=== PATIENT | female | born 1995 | race Caucasian/White ===

== ENCOUNTER → 2024-04-22 08:45 | Outpatient (REF) | payer BC, SELFPAY | LOC: PNTC 08:45 | PROVIDERS: ATTENDING PHYSICIAN Obstetrics & Gynecology | DX: O36.0191 Maternal care for anti-D [Rh] antibodies, unspecified trimester, fetus 1 (principal) | CPT/HCPCS: 86850; 86900; 86901; J2790 ==

== ENCOUNTER 2024-07-13 04:48 | Inpatient (IN) | payer BC, SELFPAY ==
[2024-07-13 05:01] VITALS: BP 119/84; BMI 33.7
[2024-07-13] MEDS: LR 1000 IV ×3 (05:15→22:43)
[2024-07-13 06:06] LABS: % Basophils 0.3 % (0-2); % Eosinophils 0.1 % (0-6); % Immature Granulocytes 0.6 % (0-0.5); % Lymphocytes 13.6 % (20.5-51.1); % Monocytes 3.6 % (1.7-9.3); % Neutrophils 81.8 % (42.2-75.2); Absolute Immature Granulocytes 0.1 10^3/uL (0-0.05); Absolute Lymphocytes 1.7 10^3/uL (1.2-3.4); Absolute Monocytes 0.5 10^3/uL (0.1-0.6); Absolute Neutrophils 10.4 10^3/uL (1.4-6.5); Hematocrit 35.6 % (37.0-47.0); Hemoglobin 12.5 g/dL (12.0-16.0); Mean Corp Hgb Conc. 35.1 g/dL (33.0-37.0); Mean Corpuscular Hgb 30.1 pg (27.0-31.0); Mean Corpuscular Volume 85.8 fL (81.0-99.0); Nucleated Red Blood Cells % 0 %; Platelet Count 160 10^3/uL (130-400); Red Blood Cell Count 4.15 10^6/uL (4.20-5.40); Red Cell Dist. Width 14.1 % (11.5-14.5); White Blood Cell Count 12.7 10^3/uL (4.8-10.8)
[2024-07-13] MEDS: ZOFRAN 4 MG IV (10:50)
[2024-07-13] MEDS: PEPCID 20 MG IV (10:50)
[2024-07-13] MEDS: MORPHINE SULFATE 2 MG IV ×2 (10:50→11:53)
[2024-07-13] MEDS: PITOCIN 30 UNITS/NSS 500 ML IV (11:00)
[2024-07-13] MEDS: FENTANYL/BUPIVACAINE 100 EPIDURAL ×2 (12:59→20:20)
[2024-07-13] MEDS: SUBLIMAZE 100 MCG EPIDURAL (12:59)
[2024-07-14] MEDS: FENTANYL/BUPIVACAINE 100 EPIDURAL (03:46)
[2024-07-14] MEDS: PITOCIN 30 UNITS/NSS 500 ML IV (11:20)
[2024-07-14] MEDS: TYLENOL 650 MG PO ×3 (13:03→23:07)
[2024-07-14] MEDS: MOTRIN 600 MG PO ×2 (16:44→23:07)
[2024-07-15] MEDS: MOTRIN 600 MG PO ×3 (05:04→18:46)
[2024-07-15] MEDS: TYLENOL 650 MG PO ×3 (05:04→18:46)
[2024-07-15 06:20] LABS: Hematocrit 29.7 % (37.0-47.0); Hemoglobin 10.1 g/dL (12.0-16.0)
[2024-07-15] MEDS: SENOKOT-S 1 TABLET PO (08:09)
[2024-07-15] MEDS: PRENATAL PLUS 1 TABLET PO (08:09)
[2024-07-15] MEDS: FEOSOL 325 MG PO (14:00)
[2024-07-15] MEDS: RHOGAM 300 MCG IM (18:47)
[2024-07-16] MEDS: TYLENOL 650 MG PO ×2 (00:31→07:21)
[2024-07-16] MEDS: MOTRIN 600 MG PO ×2 (00:31→07:22)
[2024-07-16] MEDS: PRENATAL PLUS 1 TABLET PO (07:22)
[2024-07-16] MEDS: SENOKOT-S 1 TABLET PO (07:22)
[2024-07-16] MEDS: FEOSOL 325 MG PO (07:22)
[2024-07-16 15:22] LABS: Syphilis/T. pallidum Ab Reflex Negative (Negative)
== END 2024-07-16 12:00 | disposition home or self-care (01) | DRG 807 ==
LOC: LDRP 04:48
PROVIDERS: Obstetrics & Gynecology; ADMITTING PHYSICIAN Obstetrics & Gynecology; FAMILY PHYSICIAN Nurse Practitioner Family
PROC: 4A1HXCZ Monitoring of Products of Conception, Cardiac Rate, External Approach (ICD-10-PCS; 2024-07-13)
PROC: 10E0XZZ Delivery of Products of Conception, External Approach (ICD-10-PCS; 2024-07-14)
PROC: 0KQM0ZZ Repair Perineum Muscle, Open Approach (ICD-10-PCS; 2024-07-14)
PROC: 30233S1 Transfusion of Nonautologous Globulin into Peripheral Vein, Percutaneous Approach (ICD-10-PCS; 2024-07-15)
DX: O48.0 Post-term pregnancy (principal); Z37.0 Single live birth; Z3A.40 40 weeks gestation of pregnancy; O70.1 Second degree perineal laceration during delivery; O69.1XX0 Labor and delivery complicated by cord around neck, with compression, not applicable or unspecified; O90.81 Anemia of the puerperium
CPT/HCPCS: 88307; 85014; 85018; 85025; 85461; 86780; 86850; 86870; 86900; 86901; J2790

== ENCOUNTER 2024-07-21 00:25 | Inpatient (IN) | payer BC, SELFPAY ==
[2024-07-20 22:05] VITALS: BP 162/103
[2024-07-20 22:36] VITALS: BP 176/106
--- NOTE | 2024-07-20 22:49 | ED.GENMED ---
History of Present Illness
<Errol Anderson MD, Resident - Last Filed: 07/21/24 02:50>
General
Chief Complaint: Blood Pressure Problem
Source: patient
Time Seen by Provider: 07/20/24 22:49
Travel History
Have you traveled to any high risk areas for coronavirus over the past 14 days?: No
Have you had any contact with someone who has COVID-19?: No
Do you have any symptoms of coronavirus? Fever > 100 degrees, chills, cough, shortness of breath, sore throat, loss of taste or smell, muscle aches, or headache?: No
History of Present Illness
History of Present Illness:
Kimberley Franco, age 29, has had bilateral lower extremity edema after an uncomplicated vaginal delivery on 07-16-24 at 40/4 weeks gestation. She checked her blood pressure today, which was elevated and came to the ED for further evaluation.
Denies chest pain, shortness of breath, palpitations, fatigue, headaches, lightheadedness, blurry vision, abdominal pain, nausea, vomiting or blood in urine. She did not have any complications during the and her blood pressure had remained
within normal limits throughout the .
Past History
<Errol Anderson MD, Resident - Last Filed: 07/21/24 02:50>
Past History
ED Past Medical History: Other (generalized anxiety disorder; major depressive disorder; Hill-Sachs deformity of humeral head; Bankart injury)
ED Past Surgical History: None
Social History
Tobacco: Non-smoker
Alcohol: None
Drug: None
Review of Systems
<Errol Anderson MD, Resident - Last Filed: 07/21/24 02:50>
Review of Systems
All Other Systems: Not applicable
Constitutional: Reports no symptoms
EENT: Reports no symptoms
Respiratory: Reports no symptoms
Cardiac: Reports no symptoms
ABD/GI: Reports no symptoms
: Reports no symptoms
Musculoskeletal: Reports edema (bilateral lower extremity)
Skin: Reports no symptoms
Neurological: Reports no symptoms
Endocrine: Reports no symptoms
Hematologic/Lymphatic: Reports no symptoms
Psychiatric: Reports no symptoms
Phy Exam
<Errol Anderson MD, Resident - Last Filed: 07/21/24 02:50>
General Physical Exam
General Presentation: well appearing and no apparent distress
General Skin: warm and dry
General Habitus: normal
General Mental: alert
General Hydration: appears well hydrated
ENT Exam
ENT Exam: EOMI, pharynx normal, neck supple and normocephalic
Eye Exam
Eye Exam: PERRL, cornea clear and conjunctiva normal
Cardiovascular Exam
Cardiovascular Exam: regular rate/rhythm, no edema, no murmur and normal peripheral pulses
Pulmonary Exam
Pulmonary Exam: lungs clear, no respiratory distress, no rales, no crackles, no rhonchi, no stridor, no wheezing and no cough
Gastrointestinal Exam
Gastrointestinal Exam: normal bowel sounds, non tender, soft, no organomegaly, no pulsatile mass and non distended
Neurological Exam
Neurological Exam: alert, oriented x3, no motor deficits and speech normal
Musculoskeletal Exam
Musculoskeletal Exam: full ROM and edema (1+ bilateral lower extremity)
Skin Exam
Skin Exam: normal color, warm/dry, no rash and no petechia
Psychiatric Exam
Psychiatric Exam: normal mood/affect
Course
<Errol Anderson MD, Resident - Last Filed: 07/21/24 02:50>
Orders/Labs/Results
Orders:
Orders
07/20/24 Dinner
Clear Liquid
07/20/24 22:56
CMP [Comprehensive Metabolic Panel] Urgent
Complete Blood Count/With Diff Urgent
07/20/24 23:45
Lactated Ringers [Lr] 1,000 ml IV 25 mls/hr
Mag Sulfate 40 Gram/1000 ml [Magnesium Sulfate 40 Gram] 40 gram in 1,000 ml IV 50 mls/hr
07/20/24 23:48
Protein/Creat Ratio (Random) Urgent
Date Specimen was Collected: 07/20/24
Time Specimen was Collected: 23:39
Comment: ADD ON
Urinalysis Reflex To Culture Urgent
Date Specimen was Collected: 07/20/24
Time Specimen was Collected: 23:39
Urine Microscopic Reflex Cult Urgent
Urine Culture Urgent
RAFA Source: U
Specimen Description:
Date Specimen was Collected: 07/20/24
Time Specimen was Collected: 23:39
07/20/24 23:50
Labetalol HCl [Trandate] 10 mg IV NOW STA
07/20/24 23:52
Add On- LAB Stat
Tests Added?: urine protein:creatinine ratio
07/20/24 23:53
Admit Patient As Directed
Co-Sign Provider:
Level of Care: Inpatient admission
Assign to:: LDRP
Physician / Group: melodie angulo
Diagnosis: pre-eclampsia with severe features
Patient Condition: Good
Reason for Hospitalization: pre-eclampsia with severe features
Expected length of stay greater than two midnights?: No
ELOS- Estimated Length of Stay in days: 3
I certify the patient meets the requirements for IP care: Yes
Reason for Overnight Stay: Standard of Care
Complete Blood Count/No Diff IN AM
Activity As Directed
Activity Level: Bedrest
Comment: Patient may use bedside commode
INT (Intravenous Needle Therapy) As Directed
Vital Signs As Directed
Frequency: Per unit guidelines
Call for:: SBP >/= 160, DBP >/= 110, pulse > 120, temperature > 100.4 F
PRN Pain Medication Management As Directed
May give lesser potent ordered pain med per pt: Yes
preference::
Protocol:: Medication orders for pain may be administered in a
manner that supports deferring to patient preference
when the pt is:
- Requesting an ordered lesser potent pain medication.
Least to most potent pain medications are defined
as: acetaminophen < NSAID < tramadol < opioids
(morphine, oxycodone, hydromorphone).
- Requesting a lesser dose of the same medication IF
ORDERED.
- Requesting a less intrusive route of administration
if both routes are prescribed by the provider (PO <
IV).
07/20/24 23:56
Sequential Compression Device [Pneumatic Compression Sleeves] As Directed
Type: Knee high
DX Deep Vein Thrombosis Video Routine
07/20/24 23:57
Calcium 200mg(Ca. Carb. 500mg) [Tums Chewable Tablet] 400 mg PO Q6HPRN PRN
Calcium Gluconate 1,000 mg IV PRN PRN
Docusate W/Senna [Senokot-S] 1 tablet PO DAILYPRN PRN
Ibuprofen [Motrin] 600 mg PO Q6HPRN PRN
Magnesium Sulfate 4 Gram/100Ml [Magnesium Sulfate] 4 gram in 100 ml IV NOW
INT (Intravenous Needle Therapy) As Directed
Comment: Insert and maintain 2 IV access sites
Intake/ Output As Directed
Frequency: q1h
Comment: strict Input and Output while on magnesium therapy- may use bedside commode
Magnesium Sulfate Maternal Monitoring As Directed
Monitoring Instructions: Maternal vital signs including Oxygen Saturation
- every 5 minutes during bolus of Magnesium Sulfate, then every 15 minutes x 4, then
every 30 minutes x 2, then every hour until delivered.
- After delivery, every 15 minutes x 2, then hourly until magnesium sulfate therapy
is discontinued.
Deep tendon reflexes (DTR) every 2 hours
Ausculation of lungs every 2 hours
Notify MD As Directed
Notify physician if: 1. Deep tendon reflexes are greater than +2 or absent
2. Rales present or respirations less than or equal to 12
Vital Signs As Directed
Frequency: Other
Additional Instructions:: Maternal vital signs including Oxygen Saturation
- every 5 minutes during bolus of Magnesium Sulfate, then every 15 minutes x 4, then
every 30 minutes x 2, then every hour until delivered.
-After delivery, every 15 minutes x 2, then hourly until magnesium sulfate therapy
is discontinued.
Rx Incentive Spirometry [RESP] Routine
Frequency: Other
Comment: BID
07/21/24 00:00
Vital Signs As Directed
Frequency: Other
Additional Instructions:: When blood pressure is within the target range:
repeat BP Q10min x 1hr, Q15min x 1hr, Q30min x 1hr, and Q1H x 4hr
Target BP < 160/110 mmHg
07/21/24 00:01
Cold Application As Directed
Location: to perineum for 20 minute cycles prn for 6 hours as tolerated
Frequency: PRN
Duration of Application: No longer than 20 minutes
Method of Delivery: Ice packs
Method of Delivery: Ice packs
Dermoplast [place] As Directed
Fundus and Vaginal Bleeding Assessment As Directed
Instructions:: assess 1 hour after the 2 hour recovery, then every shift.
Witch Jennifer (tucks) pads As Directed
Apply to:: perineum
Frequency: prn
PRN Reason: perineal discomfort/hemorrhoid
Comment: keep at bedside
07/21/24 00:20
US Legs, Bilateral [US Periph Venous LOWER Ext Divina] Urgent
Comment:
Reason For Exam: divina leg swelling
07/21/24 01:00
Flush (0.9% Sodium Chloride) [Flush (Nss)] See Dose Instructions IV PER PROTOCOL
09/29/24 06:00
CMP [Comprehensive Metabolic Panel] IN AM
Magnesium Urgent
Abnormal Lab Results
07/20/24 07/20/24
22:56 23:48
RBC 3.72 L 10^6/uL
(4.20-5.40)
Hgb 10.8 L g/dL
(12.0-16.0)
Hct 30.8 L %
(37.0-47.0)
Abs Immat Gran (auto) 0.2 H 10^3/uL
(0-0.05)
Absolute Neuts (auto) 6.6 H 10^3/uL
(1.4-6.5)
Immature Gran % 1.6 H %
(0-0.5)
Carbon Dioxide 21 L mmol/L
(22-30)
BUN 19 H mg/dl
(7-17)
AST 37 H U/L
(14-36)
ALT 74 H U/L
(0-35)
Alkaline Phosphatase 165 H U/L
(38-126)
Ur Occult Blood Reflex 3+ A
(Negative)
Leukocyte Esterase Rfl 2+ A
(Negative)
Urine RBC 30-40 A /HPF
(0-2)
Urine WBC (Reflex) 21-25 A /HPF
(0-5)
Urine Bacteria (Reflex) Few A
(Negative)
07/20/24 22:56
Vital Signs
Initial and Last Documented VS:
Initial Vital Signs
Temp Pulse Resp BP Pulse Ox
98.3 F 70 20 162/103 98
07/20/24 22:05 07/20/24 22:05 07/20/24 22:05 07/20/24 22:05 07/20/24 22:05
Last Documented Vital Signs
Temp Pulse Resp BP Pulse Ox
98.9 F 71 18 150/82 98
07/21/24 01:54 07/21/24 02:09 07/21/24 01:54 07/21/24 02:09 07/21/24 00:30
<Edwin Henson, - Last Filed: 07/21/24 00:15>
Orders/Labs/Results
Orders:
Orders
07/20/24 Dinner
Clear Liquid
07/20/24 22:56
CMP [Comprehensive Metabolic Panel] Urgent
Complete Blood Count/With Diff Urgent
07/20/24 23:45
Lactated Ringers [Lr] 1,000 ml IV 25 mls/hr
Mag Sulfate 40 Gram/1000 ml [Magnesium Sulfate 40 Gram] 40 gram in 1,000 ml IV 50 mls/hr
07/20/24 23:48
Protein/Creat Ratio (Random) Urgent
Date Specimen was Collected: 07/20/24
Time Specimen was Collected: 23:39
Comment: ADD ON
Urinalysis Reflex To Culture Urgent
Date Specimen was Collected: 07/20/24
Time Specimen was Collected: 23:39
Urine Microscopic Reflex Cult Urgent
Urine Culture Urgent
RAFA Source: U
Specimen Description:
Date Specimen was Collected: 07/20/24
Time Specimen was Collected: 23:39
07/20/24 23:50
Labetalol HCl [Trandate] 10 mg IV NOW STA
07/20/24 23:52
Add On- LAB Stat
Tests Added?: urine protein:creatinine ratio
07/20/24 23:53
Admit Patient As Directed
Co-Sign Provider:
Level of Care: Inpatient admission
Assign to:: LDRP
Physician / Group: melodie angulo
Diagnosis: pre-eclampsia with severe features
Patient Condition: Good
Reason for Hospitalization: pre-eclampsia with severe features
Expected length of stay greater than two midnights?: No
ELOS- Estimated Length of Stay in days: 3
I certify the patient meets the requirements for IP care: Yes
Reason for Overnight Stay: Standard of Care
Complete Blood Count/No Diff IN AM
Activity As Directed
Activity Level: Bedrest
Comment: Patient may use bedside commode
INT (Intravenous Needle Therapy) As Directed
Vital Signs As Directed
Frequency: Per unit guidelines
Call for:: SBP >/= 160, DBP >/= 110, pulse > 120, temperature > 100.4 F
PRN Pain Medication Management As Directed
May give lesser potent ordered pain med per pt: Yes
preference::
Protocol:: Medication orders for pain may be administered in a
manner that supports deferring to patient preference
when the pt is:
- Requesting an ordered lesser potent pain medication.
Least to most potent pain medications are defined
as: acetaminophen < NSAID < tramadol < opioids
(morphine, oxycodone, hydromorphone).
- Requesting a lesser dose of the same medication IF
ORDERED.
- Requesting a less intrusive route of administration
if both routes are prescribed by the provider (PO <
IV).
07/20/24 23:56
Sequential Compression Device [Pneumatic Compression Sleeves] As Directed
Type: Knee high
DX Deep Vein Thrombosis Video Routine
07/20/24 23:57
Calcium 200mg(Ca. Carb. 500mg) [Tums Chewable Tablet] 400 mg PO Q6HPRN PRN
Calcium Gluconate 1,000 mg IV PRN PRN
Docusate W/Senna [Senokot-S] 1 tablet PO DAILYPRN PRN
Ibuprofen [Motrin] 600 mg PO Q6HPRN PRN
Magnesium Sulfate 4 Gram/100Ml [Magnesium Sulfate] 4 gram in 100 ml IV NOW
INT (Intravenous Needle Therapy) As Directed
Comment: Insert and maintain 2 IV access sites
Intake/ Output As Directed
Frequency: q1h
Comment: strict Input and Output while on magnesium therapy- may use bedside commode
Magnesium Sulfate Maternal Monitoring As Directed
Monitoring Instructions: Maternal vital signs including Oxygen Saturation
- every 5 minutes during bolus of Magnesium Sulfate, then every 15 minutes x 4, then
every 30 minutes x 2, then every hour until delivered.
- After delivery, every 15 minutes x 2, then hourly until magnesium sulfate therapy
is discontinued.
Deep tendon reflexes (DTR) every 2 hours
Ausculation of lungs every 2 hours
Notify MD As Directed
Notify physician if: 1. Deep tendon reflexes are greater than +2 or absent
2. Rales present or respirations less than or equal to 12
Vital Signs As Directed
Frequency: Other
Additional Instructions:: Maternal vital signs including Oxygen Saturation
- every 5 minutes during bolus of Magnesium Sulfate, then every 15 minutes x 4, then
every 30 minutes x 2, then every hour until delivered.
-After delivery, every 15 minutes x 2, then hourly until magnesium sulfate therapy
is discontinued.
Rx Incentive Spirometry [RESP] Routine
Frequency: Other
Comment: BID
07/21/24 00:00
Vital Signs As Directed
Frequency: Other
Additional Instructions:: When blood pressure is within the target range:
repeat BP Q10min x 1hr, Q15min x 1hr, Q30min x 1hr, and Q1H x 4hr
Target BP < 160/110 mmHg
07/21/24 00:01
Cold Application As Directed
Location: to perineum for 20 minute cycles prn for 6 hours as tolerated
Frequency: PRN
Duration of Application: No longer than 20 minutes
Method of Delivery: Ice packs
Method of Delivery: Ice packs
Dermoplast [place] As Directed
Fundus and Vaginal Bleeding Assessment As Directed
Instructions:: assess 1 hour after the 2 hour recovery, then every shift.
Renny pacheco) pads As Directed
Apply to:: perineum
Frequency: prn
PRN Reason: perineal discomfort/hemorrhoid
Comment: keep at bedside
07/21/24 00:20
US Legs, Bilateral [US Periph Venous LOWER Ext Divina] Urgent
Comment:
Reason For Exam: divina leg swelling
07/21/24 01:00
Flush (0.9% Sodium Chloride) [Flush (Nss)] See Dose Instructions IV PER PROTOCOL
07/21/24 06:00
CMP [Comprehensive Metabolic Panel] IN AM
Magnesium Urgent
Abnormal Lab Results
07/20/24 07/20/24
22:56 23:48
RBC 3.72 L 10^6/uL
(4.20-5.40)
Hgb 10.8 L g/dL
(12.0-16.0)
Hct 30.8 L %
(37.0-47.0)
Abs Immat Gran (auto) 0.2 H 10^3/uL
(0-0.05)
Absolute Neuts (auto) 6.6 H 10^3/uL
(1.4-6.5)
Immature Gran % 1.6 H %
(0-0.5)
Carbon Dioxide 21 L mmol/L
(22-30)
BUN 19 H mg/dl
(7-17)
AST 37 H U/L
(14-36)
ALT 74 H U/L
(0-35)
Alkaline Phosphatase 165 H U/L
(38-126)
Ur Occult Blood Reflex 3+ A
(Negative)
Leukocyte Esterase Rfl 2+ A
(Negative)
Urine RBC 30-40 A /HPF
(0-2)
Urine WBC (Reflex) 21-25 A /HPF
(0-5)
Urine Bacteria (Reflex) Few A
(Negative)
07/20/24 22:56
Vital Signs
Initial and Last Documented VS:
Initial Vital Signs
Temp Pulse Resp BP Pulse Ox
98.3 F 70 20 162/103 98
07/20/24 22:05 07/20/24 22:05 07/20/24 22:05 07/20/24 22:05 07/20/24 22:05
Last Documented Vital Signs
Temp Pulse Resp BP Pulse Ox
98.9 F 71 18 150/82 98
07/21/24 01:54 07/21/24 02:09 07/21/24 01:54 07/21/24 02:09 07/21/24 00:30
<Edwin Henson DO - Last Filed: 07/21/24 00:15>
MDM/Problems Addressed
Differential Diagnosis Includes:
Preeclampsia, help syndrome
Chronic conditions affecting care:
None
<Edwin Henson DO - Last Filed: 07/21/24 00:15>
*Pulse Oximetry
Patient hypoxic: no
*Critical Care Note
Total Time (30-74mins, 75-104mins- exclusive of procedures): 30
comment:
Critical care statement: A total of 30 minutes of critical care time was provided for this patient. This time is separate from time utilized to perform the aforementioned documented procedures. Aggregate critical care time includes only time
during which I was engaged in work directly related to the patient's care, as described above, whether at the bedside or elsewhere in the Emergency Department.
<Edwin Henson DO - Last Filed: 07/21/24 00:15>
Update Note
Update Note:
07/21/[address] Melodie Angulo, FLOW NURSE who will be down to see the patient.
ED Attending Note
<Errol Anderson MD, Resident - Last Filed: 07/21/24 02:50>
-
Portions of this chart may have been created with voice recognition software.� Occasional wrong word or��sound alike� substitutions may have occurred due to the inherent limitations of voice recognition software.
<Edwin Henson, DO - Last Filed: 07/21/24 00:15>
ED Attending Note
I performed a history and physical exam of patient and discussed management with resident, I reviewed resident's note and agree with documented findings and plan of care.: Yes
ED Attending Note:
29-year-old female 4 days with hypertension and bilateral lower extremity swelling. She is nursing her 4-day-old baby boy. A neighbor came by who had preeclampsia took her blood pressure. With her blood pressure is elevated,
patient came to the emergency department. She denies any headache, chest pain, or shortness of breath. Denies any visual acuity changes. She has minor abdominal aches which she attributes to being . She denies any facial swelling.
Patient was seen in conjunction with the resident. I have reviewed and agreed with his history and treatment plan. On my independent physical exam patient awake, alert, and oriented x 3, in minimal to no acute distress. She does have 1+ pitting
edema bilateral lower extremities. Without signs of cellulitis. There is no focal tenderness. Heart is regular rate and rhythm. Lungs are clear to auscultation bilaterally without wheezing rales or rhonchi. Abdomen is soft nongravid appearing.
Urinalysis is pending.
Discharge Plan
Departure
Patient Disposition: Admit
Date of Disposition: 07/21/24
Time of Disposition: 00:14
Admit to: Telemetry
Presentation/result/management discussed w/ accepting /: [facility]
Condition: Good
Discharge Problem:
Pre-eclampsia
Interventions
Interventions:
*Risk Screen - Suicide Last Done: 07/20/24 22:41
*General Assessment Last Done: 07/20/24 22:05
*Neglect/Abuse Screening Last Done: 07/20/24 22:41
ED- Fall Risk Assessment Last Done: 07/21/24 01:08
*ED COVID-19 Vaccine History Last Done: 07/20/24 22:41
*Nursing Disposition Last Done: 07/21/24 01:08
ED- Cardiac Assessment Last Done: 07/20/24 22:37
ED- Neurological Assessment Last Done: 07/20/24 22:37
ED- Pulmonary Assessment Last Done: 07/20/24 22:37
Discharge Date and Time
Discharge Date/Time: 07/21/24 01:08
[2024-07-20 22:54] VITALS: BP 172/110
[2024-07-20 23:00] VITALS: BP 166/106
[2024-07-20 23:04] LABS: % Basophils 0.5 % (0-2); % Eosinophils 1.9 % (0-6); % Immature Granulocytes 1.6 % (0-0.5); % Lymphocytes 24.6 % (20.5-51.1); % Monocytes 5.5 % (1.7-9.3); % Neutrophils 65.9 % (42.2-75.2); Absolute Basophils 0.1 10^3/uL (0-0.2); Absolute Eosinophils 0.2 10^3/uL (0-0.7); Absolute Immature Granulocytes 0.2 10^3/uL (0-0.05); Absolute Lymphocytes 2.5 10^3/uL (1.2-3.4); Absolute Monocytes 0.6 10^3/uL (0.1-0.6); Absolute Neutrophils 6.6 10^3/uL (1.4-6.5); Hematocrit 30.8 % (37.0-47.0); Hemoglobin 10.8 g/dL (12.0-16.0); Mean Corp Hgb Conc. 35.1 g/dL (33.0-37.0); Mean Corpuscular Volume 82.8 fL (81.0-99.0); Mean Platelet Volume 9.8 fL (7.4-10.4); Nucleated Red Blood Cells % 0 %; Platelet Count 297 10^3/uL (130-400); Red Blood Cell Count 3.72 10^6/uL (4.20-5.40); Red Cell Dist. Width 13.9 % (11.5-14.5); White Blood Cell Count 10.1 10^3/uL (4.8-10.8)
[2024-07-20 23:18] LABS: ALT (SGPT) 74 U/L (0-35); AST (SGOT) 37 U/L (14-36); Albumin 3.7 g/dl (3.5-5.0); Alkaline Phosphatase 165 U/L (38-126); Blood Urea Nitrogen 19 mg/dl (7-17); Calcium 9.1 mg/dl (8.4-10.2); Carbon Dioxide 21 mmol/L (22-30); Chloride 107 mmol/L (98-107); Glucose 88 mg/dl (70-99); Potassium 4.3 mmol/L (3.5-5.1); Sodium 141 mmol/L (135-145); Total Bilirubin 0.3 mg/dl (0.2-1.3); Total Protein 6.4 g/dl (6.3-8.2); eGFR > 60.00
[2024-07-20 23:49] VITALS: BP 162/101
[2024-07-20] MEDS: TRANDATE 10 MG IV (23:53)
[2024-07-20 23:57] VITALS: BP 164/99
[2024-07-20 23:58] LABS: Urine Albumin Trace (Neg - Trace); Urine Bilirubin Negative (Negative); Urine Character Clear (Clear); Urine Color Yellow; Urine Glucose Negative (Negative); Urine Ketone Negative (Negative); Urine Leukocyte 2+ (Negative); Urine Nitrite Negative (Negative); Urine Occult Blood 3+ (Negative); Urine Specific Gravity 1.005 (<1.030); Urine Urobilinogen Negative (Neg - 1+)
[2024-07-21] VITALS: BP 158/87
[2024-07-21 00:08] LABS: Urine Bacteria Few (Negative); Urine Red Blood Cell 30-40 /HPF (0-2); Urine White Cell 21-25 /HPF (0-5)
[2024-07-21 00:21] LABS: Protein/creatinine Ratio 1.4; Urine Protein 28 mg/dl
[2024-07-21 00:30] VITALS: BP 155/101
[2024-07-21] MEDS: LR 1000 IV (01:45)
[2024-07-21] MEDS: MAGNESIUM SULFATE 100 IV (01:46)
[2024-07-21 01:54] VITALS: BP 157/92; BMI 31.7
[2024-07-21] MEDS: MAGNESIUM SULFATE 40 GRAM 1000 IV ×2 (02:08→21:56)
[2024-07-21] MEDS: PROCARDIA XL (EXTENDED RELEASE) 30 MG PO (02:09)
[2024-07-21] MEDS: MOTRIN 600 MG PO ×3 (04:45→20:24)
[2024-07-21 06:14] LABS: Hematocrit 34.7 % (37.0-47.0); Mean Corp Hgb Conc. 34.6 g/dL (33.0-37.0); Mean Corpuscular Hgb 28.8 pg (27.0-31.0); Mean Corpuscular Volume 83.2 fL (81.0-99.0); Mean Platelet Volume 9.9 fL (7.4-10.4); Platelet Count 340 10^3/uL (130-400); Red Blood Cell Count 4.17 10^6/uL (4.20-5.40); Red Cell Dist. Width 13.9 % (11.5-14.5); White Blood Cell Count 11.7 10^3/uL (4.8-10.8)
[2024-07-21 06:36] LABS: ALT (SGPT) 79 U/L (0-35); AST (SGOT) 36 U/L (14-36); Albumin 4.2 g/dl (3.5-5.0); Alkaline Phosphatase 214 U/L (38-126); Blood Urea Nitrogen 13 mg/dl (7-17); Carbon Dioxide 21 mmol/L (22-30); Chloride 104 mmol/L (98-107); Estimated Creatinine Clearance > 125 ml/min; Glucose 93 mg/dl (70-99); Magnesium 5.4 mg/dl (1.6-2.3); Potassium 4.4 mmol/L (3.5-5.1); Sodium 140 mmol/L (135-145); Total Bilirubin 0.4 mg/dl (0.2-1.3); eGFR > 60.00
--- NOTE | 2024-07-21 09:27 | CM ---
CM met with pt and her mother bedside
Pt resides with ehr spouse and son/Beto
Pt has a home breast pump bedside
No financial insecurities
PCP- Tonia Munoz
Rx- [facility]
Pt requesting assistance with arranging for home visiting peoplesoft consultant
Has list of providers from insurance company already
Outreach to [place] she will provide resources to pt
Discharge Disposition- home, no needs anticipated
[2024-07-21] MEDS: SENOKOT-S 1 TABLET PO (10:44)
[2024-07-21] MEDS: PRENATAL PLUS 1 TABLET PO (10:44)
[2024-07-21] MEDS: PROCARDIA XL (EXTENDED RELEASE) PO (15:07)
[2024-07-22] MEDS: LR IV (06:09)
[2024-07-22 06:41] LABS: AST (SGOT) 26 U/L (14-36); Albumin 3.5 g/dl (3.5-5.0); Alkaline Phosphatase 165 U/L (38-126); Blood Urea Nitrogen 13 mg/dl (7-17); Carbon Dioxide 24 mmol/L (22-30); Chloride 106 mmol/L (98-107); Estimated Creatinine Clearance 103 ml/min; Glucose 89 mg/dl (70-99); Sodium 139 mmol/L (135-145); Total Bilirubin 0.2 mg/dl (0.2-1.3); Total Protein 5.9 g/dl (6.3-8.2); eGFR > 60.00
[2024-07-22 06:48] LABS: Hematocrit 34.4 % (37.0-47.0); Hemoglobin 11.7 g/dL (12.0-16.0); Mean Corpuscular Hgb 29.7 pg (27.0-31.0); Mean Corpuscular Volume 87.3 fL (81.0-99.0); Mean Platelet Volume 9.7 fL (7.4-10.4); Platelet Count 332 10^3/uL (130-400); Red Blood Cell Count 3.94 10^6/uL (4.20-5.40); Red Cell Dist. Width 14.2 % (11.5-14.5); White Blood Cell Count 8.8 10^3/uL (4.8-10.8)
[2024-07-22 06:56] LABS: ALT (SGPT) 51 U/L (0-35); Calcium 6.7 mg/dl (8.4-10.2); Potassium 4.2 mmol/L (3.5-5.1)
[2024-07-22] MEDS: SENOKOT-S 1 TABLET PO (09:33)
[2024-07-22] MEDS: PRENATAL PLUS 1 TABLET PO (09:33)
== END 2024-07-22 17:00 | disposition home or self-care (01) | DRG 776 ==
LOC: LDRP 00:25
PROVIDERS: ADMITTING PHYSICIAN Obstetrics & Gynecology; EMERGENCY PHYSICIAN Student in an Organized Health Care Education/Training Program; FAMILY PHYSICIAN Nurse Practitioner Family; REFERRING PHYSICIAN Obstetrics & Gynecology
DX: O14.15 Severe pre-eclampsia, complicating the puerperium (principal)
CPT/HCPCS: 80053; 81003; 81015; 82570; 83735; 84156; 85025; 85027; 87077; 87086; 87186; 93970; 96374; 99291

== ENCOUNTER 2025-09-18 08:41 | Emergency (ER) | payer BC, SELFPAY ==
[2025-09-18 08:44] VITALS: BP 125/87
--- NOTE | 2025-09-18 09:09 | ED.GENMED ---
History of Present Illness
General
Chief Complaint: Headache
Source: patient
Exam Limitations: none
Time Seen by Provider: 09/18/25 09:01
History of Present Illness
History of Present Illness:
See MDM
Past History
Past History
ED Past Medical History: Other (generalized anxiety disorder; major depressive disorder; Hill-Sachs deformity of humeral head; Bankart injury)
ED Past Surgical History: None
Social History
Tobacco: Non-smoker
Alcohol: None
Drug: None
Phy Exam
Physical Exam
Physical Exam:
See MDM
Course
Orders/Labs/Results
Orders:
Orders
09/18/25 09:08
CT Head W/o Iv Contrast Urgent
Comment:
Reason For Exam: frontal headache
0.9% Sodium Chloride 1000 ml [Nss] 1,000 ml IV BOLUS
Diphenhydramine [Benadryl] 25 mg IV NOW STA
Ketorolac [Toradol] 30 mg IV NOW STA
Metoclopramide [Reglan] 10 mg IV NOW STA
Test Result ONCE
09/18/25 09:20
Complete Blood Count/With Diff Urgent
Comprehensive Metabolic Panel Urgent
HCG, Serum Qualitative Screen Urgent
Abnormal Lab Results
09/18/25
09:20
MPV 11.2 H fL
(7.4-10.4)
Absolute Lymphs (auto) 1.1 L 10^3/uL
(1.2-3.4)
Neutrophils % 78.3 H %
(42.2-75.2)
Lymphocytes % 15.0 L %
(20.5-51.1)
Sodium 134 L mmol/L
(135-145)
09/18/25 09:20
09/18/25 09:20
Vital Signs
Initial and Last Documented VS:
Initial Vital Signs
Temp Pulse Resp BP Pulse Ox
98.7 F 119 18 125/87 97
09/18/25 08:44 09/18/25 08:44 09/18/25 08:44 09/18/25 08:44 09/18/25 08:44
Last Documented Vital Signs
Temp Pulse Resp BP Pulse Ox
98.6 F 81 20 113/73 95
09/18/25 09:34 09/18/25 09:34 09/18/25 09:34 09/18/25 09:34 09/18/25 09:34
MDM/Problems Addressed
Differential Diagnosis Includes:
Note:
CHIEF COMPLAINT(S)
Headache.
HISTORY OF PRESENT ILLNESS
The patient is a 30-year-old female presenting with a headache. The headache has been worsening gradually. There is no noted history of headaches in the past, and the patient reports no specific triggers such as stress or a decrease in caffeine
intake provoking this episode. The location of the headache is frontal in band-like distribution. Light sensitivity is noted as a symptom.
The patient doesnt smoke, and there are no allergies reported. No is suspected, but a test will be performed for confirmation.
PAST MEDICAL AND SURGICAL HISTORY
Not explicitly discussed.
PHYSICAL EXAM
General: Mildly uncomfortable with eyes closed
Skin: Warm, dry.
Head: Normocephalic, atraumatic
Neck: Appears supple, trachea midline.
Eyes, Ears, Nose, Mouth, and Throat: Moist mucous membranes. Pupils equal reactive
Cardiovascular: No signs of cyanosis
Respiratory: Respirations are non-labored.
Abdomen: Non-distended
Musculoskeletal: No deformities
Neurological: No focal neurological deficit observed.
Psychiatric: Cooperative, appropriate mood and affect.
PLAN
The clinical plan involves administering pain relief with intravenous ketorolac, antiemetic and headache relief with intravenous metoclopramide, and to counteract potential jitteriness, intravenous diphenhydramine will be administered. A blood test
will be conducted, and a CT scan of the head will be ordered to rule out severe pathologies such as hemorrhage or aneurysm.
DIFFERENTIAL DIAGNOSIS
The Differential Diagnosis includes, in no particular order and is not limited to:
- Migraine
- Tension-type headache
- Cluster headache
- Sinus headache
- Medication overuse headache
- Subarachnoid hemorrhage
- Intracranial mass lesion
- Meningitis
- Temporal arteritis
- Venous sinus thrombosis
SUMMARY OF ENCOUNTER
The patient presented with a headache that has been increasing in severity. No prior history of similar headaches was noted. The approach is to rule out acute dangerous causes while treating presumptively for a primary headache scenario such as
migraine or tension-type headache using intravenous medications which include ketorolac, metoclopramide, and diphenhydramine.
EMERGENCY TREATMENTS ADMINISTERED
- Intravenous ketorolac (Toradol).
- Intravenous metoclopramide (Reglan).
- Intravenous diphenhydramine (Benadryl).
DIAGNOSIS
- R51.9 Headache, unspecified.
- G43.909 Migraine, unspecified, not intractable, without status migrainosus.
- G44.209 Tension-type headache, unspecified, not intractable, without status migrainosus.
MEDICAL DECISION MAKING
- Complexity of Data Reviewed: Chronic conditions affecting care such as potential headache diagnoses and ruling out secondary causes.
Differential diagnosis included various primary and secondary headaches.
- Data:
Category 1: Tests and documents include ordering a CT scan of the head and conducting blood tests.
Category 2: No external notes or input from other historians.
Category 3: Discussion with the patient about management in terms of headache classification and treatment approach.
- Risk:
Prescription medication was administered via IV, and appropriate management of side effects discussed.
SUMMARY OF ENCOUNTER
The patient, a 30-year-old female, presented with a headache exhibiting a band-like distribution, suggestive of a possible tension-type headache or migraine. No neurological deficits were observed during the examination. Due to the severity of the
headache, a CT scan of the head was performed to rule out any serious underlying causes. After administration of medications, the patient reported significant relief and expressed comfort with returning home.
DISPOSITION
Discharge
ASSESSMENT
The clinical presentation aligns with a tension-type headache or migraine, given the band-like distribution of symptoms and response to treatment.
EMERGENCY TREATMENTS ADMINISTERED
- Intravenous ketorolac
- Intravenous metoclopramide
- Intravenous diphenhydramine
PLAN
The patient is to be discharged with continued headache management and advised to follow up with primary care for further evaluation if symptoms persist or worsen.
INDEPENDENT REVIEW OF LABS AND INTERPRETATION OF TESTS
My independent interpretation of the CT scan of the head shows no acute intracranial pathology.
PATIENT EDUCATION AND COUNSELING
The patient was advised on the nature of tension-type headaches and migraines, including potential triggers, management strategies, and when to seek further medical attention. She was informed of the results of the CT scan and reassured about the
absence of acute findings.
FOLLOW-UP INSTRUCTIONS
The patient is advised to follow up with her primary care provider for ongoing headache management and to return to the emergency department if she experiences any new or worsening symptoms.
MEDICATION RECONCILIATION
1. Intravenous ketorolac administered during visit.
2. Intravenous metoclopramide administered during visit.
3. Intravenous diphenhydramine administered during visit.
MEDICAL DECISION MAKING
- Number and Complexity of Problems Addressed:
Tension-type headache or migraine suspected, with differential diagnosis including migraine, tension-type headache, cluster headache, sinus headache, medication overuse headache, subarachnoid hemorrhage, intracranial mass lesion, meningitis,
temporal arteritis, and venous sinus thrombosis.
- Data:
Category 1: Tests and documents
- Ordered and independently reviewed a CT scan of the head, which was negative.
Category 3: Discussed the patients management plan with the patient directly, emphasizing treatment strategies and follow-up precautions.
- Risk:
Prescription medication was administered via IV, with emphasis on managing symptoms effectively.
DIAGNOSIS
- G43.909 Migraine, unspecified, not intractable, without status migrainosus.
- G44.209 Tension-type headache, unspecified, not intractable, without status migrainosus.
*Pulse Oximetry
SaO2: 97
Oxygen Mode of Delivery: Room air
Patient hypoxic: no
*Critical Care Note
Total Time (30-74mins, 75-104mins- exclusive of procedures): Not Applicable
ED Attending Note
-
Portions of this chart may have been created with voice recognition software.� Occasional wrong word or��sound alike� substitutions may have occurred due to the inherent limitations of voice recognition software.
Discharge Plan
Departure
Patient Disposition: Home (Routine Discharge)
Date of Disposition: 09/18/25
Time of Disposition: 10:50
Patient with high blood pressure during this ER visit?: No
Discharge Problem:
Headache
Instructions: Headache, Adult (DC)
Prescriptions:
No Action
tablet
1 tab PO DAILY
ferrous sulfate [FeroSul] 325 mg (65 mg iron) Tablet
325 mg PO DAILY Qty: 0 0RF
ibuprofen 200 mg tablet
600 mg PO Q6HPRN PRN (Reason: moderate pain/cramps) Qty: 0 0RF
sennosides-docusate sodium 8.6-50 mg Tablet
1 tab PO DAILYPRN PRN (Reason: constipation) Qty: 0 0RF
acetaminophen 325 mg Tablet
650 mg PO Q4HPRN PRN (Reason: mild pain) Qty: 0 0RF
nifedipine 30 mg Tablet Extended Release
30 mg PO DAILY@0200 Qty: 30 3RF
Activity Restrictions/Additional Instructions:
Please return for any worsening symptoms.
You may return at any time if you have further concerns.
Please follow up with your doctor at the first available appointment, preferably this week.
Thank you for choosing [facility].
Interventions
Interventions:
*Risk Screen - Suicide Last Done: 09/18/25 09:34
*General Assessment Last Done: 09/18/25 09:34
*Neglect/Abuse Screening Last Done: 09/18/25 09:34
*ED- Fall Risk Assessment Last Done: 09/18/25 09:34
*ED COVID-19 Vaccine History Last Done: 09/18/25 09:34
*ED Influenza Vaccine History Last Done: 09/18/25 09:34
ED- Neurological Assessment Last Done: 09/18/25 09:34
Discharge Date and Time
Print Language: THAI
[2025-09-18 09:19] VITALS: BMI 25.8
[2025-09-18] MEDS: NSS 1000 IV (09:24)
[2025-09-18] MEDS: TORADOL 30 MG IV (09:24)
[2025-09-18] MEDS: BENADRYL 25 MG IV (09:24)
[2025-09-18] MEDS: REGLAN 10 MG IV (09:24)
[2025-09-18 09:34] VITALS: BP 113/73
[2025-09-18 09:39] LABS: Hematocrit 38.7 % (37.0-47.0); Hemoglobin 12.9 g/dL (12.0-16.0); Mean Corp Hgb Conc. 33.3 g/dL (33.0-37.0); Mean Corpuscular Volume 87.4 fL (81.0-99.0); Nucleated Red Blood Cells % 0 %; Platelet Count 193 10^3/uL (130-400); Red Cell Dist. Width 12.8 % (11.5-14.5)
[2025-09-18 10:00] VITALS: BP 101/66
[2025-09-18 10:01] LABS: HCG, Serum Qualitative Screen Negative
[2025-09-18 10:06] LABS: ALT (SGPT) 17 U/L (0-35); AST (SGOT) 18 U/L (14-36); Albumin 4.6 g/dl (3.5-5.0); Alkaline Phosphatase 46 U/L (38-126); Blood Urea Nitrogen 13 mg/dl (7-17); Calcium 8.8 mg/dl (8.4-10.2); Carbon Dioxide 25 mmol/L (22-30); Chloride 101 mmol/L (98-107); Estimated Creatinine Clearance 121 ml/min; Glucose 95 mg/dl (70-99); Potassium 3.9 mmol/L (3.5-5.1); Sodium 134 mmol/L (135-145); Total Protein 7.5 g/dl (6.3-8.2); eGFR > 60.00
== END 2025-09-18 11:05 | disposition home or self-care (01) ==
LOC: EMR 08:41
PROVIDERS: EMERGENCY PHYSICIAN Student in an Organized Health Care Education/Training Program; FAMILY PHYSICIAN Nurse Practitioner Family
DX: R51.9 Headache, unspecified (principal); F41.1 Generalized anxiety disorder
CPT/HCPCS: 99284; 96374; 96375; 96361; 70450; 80053; 84703; 85025